=== PATIENT | male | born 1990 | race Caucasian/White ===

== ENCOUNTER 2018-02-08 09:12 | Emergency (ER) | payer SELFPAY ==
[~2018-02-08] VITALS: Ht 180.3 cm; Wt 63.5 kg
[2018-02-08 09:15] VITALS: BP 146/84
--- NOTE | 2018-02-08 09:20 | NUR ---
PT AMBULATES W/ STEADY GAIT TO BED 3 AT THIS TIME. REPORT GIVEN TO JOVANNA INMAN.
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
--- NOTE | 2018-02-08 10:09 | NUR ---
Patient being evaluated by physician at bedside.
[2018-02-08 10:54] VITALS: BP 140/84
== END 2018-02-08 10:54 | disposition home or self-care (01) ==
LOC: MED 09:12
DX: S02.2XXA Fracture of nasal bones, initial encounter for closed fracture (principal); Y04.0XXA Assault by unarmed brawl or fight, initial encounter; Y93.89 Activity, other specified; Y92.89 Other specified places as the place of occurrence of the external cause; Y99.8 Other external cause status; R03.0 Elevated blood-pressure reading, without diagnosis of hypertension
CPT/HCPCS: 70160; 90715; 99284